=== PATIENT | male | born 1970 | race African-American/Black ===

== ENCOUNTER 2019-08-15 08:05 | Observation (INO) | payer OTHER ==
--- NOTE | 2019-08-15 08:34 | RAD ---
RADIOGRAPH CHEST 1 VIEW: DATE: 08/15/2019 HISTORY: 48-year-old female with chest pain FINDINGS: The thoracic aorta is tortuous and ectatic. There is no evidence of airspace density, cardiomegaly, p ulmonary edema, or pneumothorax. The lateral costophrenic angles are not effaced. IMPRESSION: 1) No acute pulmonary findings. 2) ectasia of thoracic aorta.
[2019-08-15 08:46] LABS: #Lymphocytes 1.1 thou/uL (1.20-3.40); #Monocytes 0.3 thou/uL (0.11-0.59); #Neutrophils 1.6 thou/uL (1.40-6.50); %Basophils 0.3 % (0.0-1.0); %Eosinophils 0.5 % (0.0-10.0); %Monocytes 10.1 % (0.0-10.0); %Neutrophils 53.1 % (42.0-75.0); Hemoglobin 13.7 g/dL (14.0-18.0); Mean Corpuscular HGB CONC 32.5 g/dL (32.0-36.0); Mean Corpuscular Volume 95.4 fL (78.0-98.0); Platelet Count 211 thou/uL (130-400); RBC Distribution Width 13.2 % (11.5-14.5); Red Blood Cell (RBC) Count 4.42 mill/uL (4.70-6.10); White Blood Cell (WBC) Count 2.9 thou/uL (4.8-10.8)
[2019-08-15 09:05] LABS: ALT (SGPT) 32 U/L (8-55); AST (SGOT) 21 U/L (5-34); Albumin 4.1 g/dL (3.5-5.0); Alkaline Phosphatase 88 U/L (40-110); Anion Gap 11 mmol/L (10-20); BUN (Urea Nitrogen) 13 mg/dL (8.9-20.6); Bilirubin, Total 0.5 mg/dL (0.2-1.2); Calc. Creatinine Clearance 0 mL/min (70-130); Calcium 9.3 mg/dL (7.8-10.44); Carbon Dioxide 26 mmol/L (22-29); Chloride 107 mmol/L (98-107); Estimated GFR-MDRD 78; Globulin 2.5 g/dL (2.4-3.5); Glucose 94 mg/dL (70-105); Potassium 4.1 mmol/L (3.5-5.1); Protein, Total 6.6 g/dL (6.0-8.3); Sodium 140 mmol/L (136-145)
[2019-08-15 11:21] LABS: Troponin I 0.026 ng/mL (< 0.028)
--- NOTE | 2019-08-15 12:49 | PDOC.FPRHP ---
- History of Present Illness Chief Complaint: Chest pain History of Present Illness: Mr. Greenberg is a 48yo AAM who [facility] of chest pain. For the past 3 days he has noticed a tightening of his anterior chest which has radiated from the left side over to the center of his chest and also radiates behind his ear and into the left shoulder/axilla. The pain usually lasts 1-3 hours, however this morning it lasted about 5 hours which prompted him to come to the ED. Movement and stretching makes the pain better. Nothing makes the pain worse. He normally does sit-up and push ups in the evenings. He denies history of heart problems. His chest pain was resolved with the Nitro paste. He has a history of anxiety. ED Course: NS 500ml, ASA, Nitro paste - Allergies/Adverse Reactions Allergies Allergy/AdvReac Type Severity Reaction Status Date / Time No Known Allergies Allergy Verified 08/15/19 14:43 - Home Medications Medication Instructions Recorded Confirmed Type Amlodipine [Norvasc] 5 mg PO DAILY 08/15/19 08/15/19 History Aspirin [Ecotrin] 81 mg PO DAILY 08/15/19 08/15/19 History Atorvastatin Calcium [Lipitor] 40 mg PO QPM 08/15/19 08/15/19 History - History PMHx: HTN HLD PSHx: None FHx: Mom: HTN, DM II, 08/18 GA @ 62 Social: 1p q 3 days x 8 years. History of social alcohol use. No history illicit drugs. - Review of Systems General: denies: fever/chills, weight/appetite/sleep changes, night sweats, fatigue Eyes: denies: eye pain, vision changes ENT: denies: nasal congestion, rhinorrhea Respiratory: denies: cough, congestion, shortness of breath, exercise intolerance Cardiovascular: reports: chest pain, edema. denies: palpitation, paroxysmal nocturnal dyspnea, orthopnea Gastrointestinal: denies: nausea, vomiting, diarrhea, constipation Genitourinary: denies: incontinence, dysuria, polyuria Skin: denies: rashes, lesions, jaundice Musculoskeletal: reports: pain, tenderness, stiffness. denies: swelling Neurological: reports: other (headache). denies: numbness, syncope, seizure Psychological: reports: anxiety. denies: depression - Vital signs BP: 136/90, Pulse: 69, Resp: 15, Pain: 0, O2 sat: 100 on (Room Air). Wt: 99kg - Physical Exam Constitutional: NAD, awake, alert and oriented, well developed HEENT: normocephalic and atraumatic, PERRLA, EOMI, conjunctiva clear, grossly normal vision, grossly normal hearing, MMM Neck: trachea midline, no JVD, no thyromegaly Chest: no-tender to palpation Heart: RRR, normal S1/S2, no murmurs/rubs/gallops, pulses present, no edema Lungs: CTAB, no respiratory distress, good air movement, no rales/rhonchi, no wheezing Abdomen: soft, non-tender, bowel sounds present Musculoskeletal: normal structure, normal tone Neurological: no focal deficit, CN II-XII intact Skin: no rash/lesions, good turgor Heme/Lymphatic: no unusual bruising or bleeding, no purpura Psychiatric: normal mood and affect, good judgment and insight, intact recent and remote memory FMR H&P: Results - Labs Result Diagrams: 08/15/19 08:33 08/15/19 08:33 Lab results: WBC 2.9 thou/uL (4.8-10.8) L 08/15/19 08:33 Hgb 13.7 g/dL (14.0-18.0) L 08/15/19 08:33 Hct 42.2 % (42.0-52.0) 08/15/19 08:33 MCV 95.4 fL (78.0-98.0) 08/15/19 08:33 Plt Count 211 thou/uL (130-400) 08/15/19 08:33 Neutrophils % 53.1 % (42.0-75.0) 08/15/19 08:33 Sodium 140 mmol/L (136-145) 08/15/19 08:33 Potassium 4.1 mmol/L (3.5-5.1) 08/15/19 08:33 Chloride 107 mmol/L (98-107) 08/15/19 08:33 Carbon Dioxide 26 mmol/L (22-29) 08/15/19 08:33 BUN 13 mg/dL (8.9-20.6) 08/15/19 08:33 Creatinine 1.19 mg/dL (0.7-1.3) 08/15/19 08:33 Glucose 94 mg/dL (70-105) 08/15/19 08:33 Calcium 9.3 mg/dL (7.8-10.44) 08/15/19 08:33 Total Bilirubin 0.5 mg/dL (0.2-1.2) 08/15/19 08:33 AST 21 U/L (5-34) 08/15/19 08:33 ALT 32 U/L (8-55) 08/15/19 08:33 Alkaline Phosphatase 88 U/L (40-110) 08/15/19 08:33 Serum Total Protein 6.6 g/dL (6.0-8.3) 08/15/19 08:33 Albumin 4.1 g/dL (3.5-5.0) 08/15/19 08:33 - EKG Interpretation EKG: NSR FMR H&P: A/P - Problem List (1) Chest pain Current Visit: Yes Status: Acute Code(s): R07.9 - CHEST PAIN, UNSPECIFIED (2) HTN (hypertension) Current Visit: Yes Status: Acute Code(s): I10 - ESSENTIAL (PRIMARY) HYPERTENSION (3) Hyperlipidemia Current Visit: Yes Status: Acute Code(s): E78.5 - HYPERLIPIDEMIA, UNSPECIFIED - Plan Chest pain, atypical - Heart score of 3 - Initial troponin very low, mildly increased on repeat, indeterminate level. - Typical vs Atypical - seems msk in nature, however it did have a classic radiation pattern and was relieved by nitro. - AM Labs: Fasting lipid panel, TSH, and A1c - Will perform cardiolite stress test in the AM - Trend troponins. HTN, HLD - will continue home medications Borderline neutropenia - WBC 2.9. ANC 1539 - Will order HIV, Hepatitis and Syphilis serologies. Disposition/LOS: Dispo: Stable, observation. Likely d/c tomorrow pending results of stress test. VTE: Lovenox Code: Full FMR H&P: Upper Level - Plan Date/Time: 08/15/19 1248 IMack MD, have evaluated this patient and agree with findings/plan as outlined by auditor internal resident. Pertinent changes/additions are listed here. Juan Greenberg is a 48 year old M with a PMH of HTN, HLD, currently incarcerated who presented to the ED with a several day history of chest pain. Pain is substernal, radiating to the neck and left arm, occurring at rest. Not exertional, no associated fever, diaphoresis, n/v, dyspnea. No history of CAD. Had a stress test over 10 years ago that was negative. States that he was having chest pain at that time but it was attributed to anxiety. Pain not reproducible with palpation. At the facility, patient was given Nitro X3 which improved with chest pain. In the ED, EKG showed NSR without ST changes. VSS in the ED were stable and wnl. Trop was 0.011 and 0.026, WBC count 2.9 with 53% bands, platelets 211, Cr 1.19. D-dimer 0.29, CXR showed no acute cardiopulmonary findings, ectasia of thoracic. In the ED, he was given Aspirin. Patient admitted to [facility] for typical chest pain r/o acs. Has components of typical and atypical chest pain. Hx of Smoking, HTN, HLD, Pain improved with nitro, trops and EKG negative. HEART score about 4. Stress in AM , NPO @ midnight. Continue home antihypertensive regimen. Patient has borderline neutropenia. Will check HIV. Anticipate hospital stay < 48 hours unless positive stress test. Continue nitro, aspirin and statin. Checking FLP and TSH. Please see auditor internal note above for full H&P, which I have reviewed and agree with. Addendum - Attending - Attending Attestation Date/Time: 08/16/19 0803 I personally evaluated the patient and discussed the management with Dr. Hooper yesterday afternoon. I agree with the History, Examination, Assessment and Plan documented above with any addition or exceptions noted below.
[2019-08-15] MEDS ORDERED: Aspirin Chewable 81 MG TAB ONE (13:13)
[2019-08-15] MEDS ORDERED: Nitroglycerin 2% Ointment 1 INCH/1 GM Packet ONE (13:13)
[2019-08-15] MEDS ORDERED: Calcium Carbonate 500 MG ChewTAB PO PRN (13:20)
[2019-08-15] MEDS ORDERED: Senokot S 8.6-50 MG TAB PO PRN (13:20)
[2019-08-15] MEDS ORDERED: Acetaminophen 325 MG TAB PO PRN (13:20)
[2019-08-15] MEDS ORDERED: Ondansetron ODT 4 MG TAB PO PRN (13:20)
[2019-08-15 14:51] VITALS: BMI 31.8
[2019-08-15] MEDS: Nitroglycerin 0.4 MG TAB (25 Tab Bottle) SL PRN ×2 (18:31→18:36)
[2019-08-15] MEDS ORDERED: Morphine 2 MG/ML SYRINGE SLOW IVP SCH (19:30)
[2019-08-15] MEDS ORDERED: Famotidine 20 MG TAB PO SCH (21:00)
[2019-08-15] MEDS ORDERED: Atorvastatin Calcium 40 MG TAB PO SCH (21:00)
[2019-08-16] MEDS ORDERED: Morphine 2 MG/ML SYRINGE SLOW IVP SCH (01:15)
--- NOTE | 2019-08-16 05:11 | PDOC.FM ---
- Subjective Subjective: Patient was being prepped for transfer for his Stress Test at the time of evaluation. He denied any acute overnight events, but expressed concern over the etiology of his chest pain. He was counseled that the etiology of his chest pain did not appear to be cardiac at this time due to previous lab values and test results, but that the Resident Day Team would continue to investigate all possible causes. - Objective Vital Signs & Weight: Vital Signs (12 hours) Temp Pulse Resp BP Pulse Ox 08/16/19 00:54 98.6 F 75 16 132/78 97 08/15/19 19:12 98.2 F 77 16 136/82 97 Weight Weight 97.976 kg I&O: 08/14/19 08/15/19 08/16/19 06:59 06:59 06:59 Intake Total 720 Balance 720 Result Diagrams: 08/15/19 08:33 08/15/19 08:33 Phys Exam - Physical Examination Constitutional: NAD HEENT: moist MMs, sclera anicteric, oral pharynx no lesions Neck: supple, full ROM Respiratory: no wheezing, no rales, no rhonchi, clear to auscultation bilateral Cardiovascular: RRR, no significant murmur, no rub Gastrointestinal: soft, non-tender, no distention, positive bowel sounds Musculoskeletal: no edema, pulses present Neurological: non-focal, moves all 4 limbs Psychiatric: normal affect, A&O x 3 Skin: no rash Dx/Plan - Plan Plan: Patient is a 48 y/o male who [facility] from [facility] with 3 days of chest pain. 1. Chest pain, Atypical -Seems MSK in nature based on HPI, however pain does have classic radiation pattern, relieved by Nitro -EKG: Pulmonary Disease Pattern -Trops: Negative X3 -D-Dimer: 0.29 -CXR: NAF -Heart Score: 3 -Fasting Lipid Panel: Pending -TSH: Pending -HgA1c: 5.2 -Cardiolite Stress Test: Pending 2. HTN -Several elevated pressure on admission -BP: 136/83 on 08/16 -Currently holding home Amlodipine prior to Stress Test 3, HLD -See #1 -Will continue home Atorvastatin regimen 4. Neutropenia -WBC: 2.9 / ANC: 1539 -HIV: Pending -Hepatitis: Pending -RPR: Pending -Will continue to investigate 5. Anxiety -No medications listed within records from [facility] -Possible contributing factor - will continue to monitor 6. Tobacco Abuse -1/3 PPD for 8 years -Will stress importance of tobacco abuse cessation prior to DC PCP: [facility] - [facility] Code: Full Diet: HH w/ Low Sodium VTE PPx: SCDs w/ Lovenox Dispo: Patient is currently admitted to the Telemetry Floor for observation of Atypical Chest Pain. Plan for additional labs and imaging modalities as per above and consider Cardiology consult if necessary. Expected LOS < 24H. Addendum - Attending - Attending Attestation Date/Time: 08/16/19 5243 I personally evaluated the patient and discussed the management with Dr. Pham. I agree with the History, Examination, Assessment and Plan documented above with any addition or exceptions noted below. The patient's chest pain is resolved. Getting stress test today. If normal, will likely d/c.
[2019-08-16 05:22] LABS: Hemoglobin A1c 5.2 % (4.0-6.0)
[2019-08-16 05:41] LABS: Cardiac Risk 2.7 (Less than 4.5)
[2019-08-16 05:58] LABS: Syphilis Antibody Nonreactive (Nonreactive); Syphilis Antibody Index 0.03 S/CO (<1.00 Non-Reactive)
[2019-08-16 06:00] LABS: HBCM Index 0.05 S/CO (0-0.79); Hep B Surf AB Non-Reactive (NonReactive); Hep C IgG Ab Non-Reactive (NonReactive); Hep C Index 0.07 S/CO (0-0.79); Hepatitis B Core IgM Abs Non-Reactive (NonReactive); Thyroid Stimulating Hormone 0.8612 uIU/mL (0.35-4.94)
[2019-08-16] MEDS ORDERED: Aspirin 325 mg Enteric Coated Tablet PO SCH (09:00)
[2019-08-16] MEDS ORDERED: Enoxaparin Sodium 40 MG/0.4 ML SYRINGE SC SCH (09:00)
[2019-08-16] MEDS ORDERED: Aspirin 81 mg Enteric Coated Tablet PO SCH (09:00)
[2019-08-16 10:18] LABS: HIV (1/2) Antibody/Antigen Non-Reactive (NonReactive); HIV 1/2 INDEX 0.09 S/CO (<1.00)
--- NOTE | 2019-08-16 11:27 | NM ---
EXAM: NM Cardiac Stress W EF WF PROVIDED CLINICAL HISTORY: Chest pain. History of hypertension and dyslipidemia. COMPARISON: None FINDINGS: There is no significant reversible defect seen between the stress and resting acquisitions. Quantitat sera analysis also shows no significant reversible defect. Gated images demonstrate normal ventricular wall thickening, but there is mild hypokinesis involving the inferior left ventricular wa ll. The calculated left ventricular ejection fraction is 53%. IMPRESSION: 1. Normal myocardial perfusion study without evidence of a reversible defect seen to suggest ischemia . 2. Mild hypokinesis involving the inferior left ventricular wall. 3. Left ventricular ejection fraction of 53%.
[2019-08-16] MEDS ORDERED: ADENOSINE 60 MG/20 ML VIAL ONE (13:11)
[2019-08-16 16:49] VITALS: BP 148/86; TEMP 98.4
--- NOTE | 2019-08-17 02:26 | DIS ---
DATE OF ADMISSION: 08/15/2019 DATE OF DISCHARGE: 08/16/2019 RESIDENT: Ramiro Pham MD ADMITTING ATTENDING: Wicho Lucia MD DISCHARGE ATTENDING: Jean Marino MD CONSULTS: None. PROCEDURES: Stress test nuclear medicine demonstrating normal myocardial perfusion study without evidence of a reversible defect seen to suggest ischemia. Mild hypokinesia involving the inferior left ventricular wall. Left ventricular ejection fraction of approximately 53%. PRIMARY DIAGNOSIS: Musculoskeletal chest pain. SECONDARY DIAGNOSES: 1. Tobacco abuse. 2. Anxiety. 3. Neutropenia. 4. Hyperlipidemia. 5. Hypertension. DISCHARGE MEDICATION: Acetaminophen 650 mg p.o. q.4 hours p.r.n. DISCONTINUED MEDICATIONS: 1. Aspirin 81 mg p.o. daily. 2. Atorvastatin 40 mg p.o. daily. 3. Lovenox 40 mg subcutaneous daily. 4. Nitroglycerin 0.4 mg sublingual q.5 minutes p.r.n. 5. Morphine 2 mg. HISTORY OF PRESENT ILLNESS AND HOSPITAL COURSE: Mr. Greenberg is a 48-year-old male who presents from [facility]-way for 3 days of atypical chest pain. For the past 3 days, he has noticed a tightening of his anterior chest, which has radiated to the left side, to the center of his chest and also radiates behind his ear into the left shoulder and axilla. The patient states the pain usually lasts 1-3 hours. However, this morning it lasted for 5 hours, which prompted him to come to the ED, movement and stretching makes the pain better. Nothing makes the pain worse. He normally does sit-ups and pushups in the evening. He denies history of heart problems. Chest pain was resolved with nitroglycerin paste. He also admitted to a history of anxiety. In the ED, the patient received a chest x-ray which was normal and EKG, which was mildly suggestive of pulmonary dysfunction and troponins were negative x3. He subsequently underwent nuclear medicine stress test, which was read as within normal limits, results of which are noted elsewhere in this document. Following clearance from Cardiology, he was subsequently prepped for discharge. Prior to discharge his vital signs revealed a temperature of 98.7, pulse 89, respirations 14 per minute, O2 sats 98% on room air, blood pressure 136/82. LABORATORY ANALYSIS: Revealed a white blood cell count of 2.9, hemoglobin 13.7, hematocrit 42.2, platelet count 211. Coagulation panel revealed a D-dimer value of 0.29. Chem panel revealed a sodium of 140, potassium 4.1, chloride 107, carbon dioxide 26, BUN 13, creatinine 1.19, glucose 94. Hemoglobin A1c was 5.2, calcium 9.3, total bilirubin 0.5, AST 21, ALT 32, alkaline phosphatase 88, triglycerides 33, cholesterol 110, LDL 62, HDL 41, TSH 0.86. Syphilis IgG IgM antibody nonreactive. Hepatitis B surface antibody nonreactive. Hepatitis B antibody index 0. Hepatitis B core IgM antibody nonreactive. Hepatitis C antibody nonreactive. HIV 1 and 2 antigen and antibody nonreactive. DISPOSITION: Stable. DISCHARGE INSTRUCTIONS: 1. Location: Group Home. 2. Diet: Heart healthy. 3. Activity: No restrictions. 4. Followup: The patient was advised to follow up with his primary care provider in 1 to 2 weeks in order to discuss the most recent hospitalization as well as the need to initiate tobacco cessation efforts. Job ID: [id number]
== END 2019-08-16 18:07 ==
LOC: ERS 08:05 → 2SW 12:48
PROVIDERS: ADMIT Family Medicine; ATTEND Family Medicine
DX: R07.89 Other chest pain (principal); I10 Essential (primary) hypertension; E78.5 Hyperlipidemia, unspecified; F41.9 Anxiety disorder, unspecified; D70.9 Neutropenia, unspecified; F17.210 Nicotine dependence, cigarettes, uncomplicated; Z79.82 Long term (current) use of aspirin; Z79.899 Other long term (current) drug therapy
CPT/HCPCS: 36415; 71045; 78452; 80053; 80061; 83036; 84443; 84484; 85025; 85379; 86705; 86706; 86780; 86803; 87389; 93017; 96360; 96361; 96372; 96374; 96376; A9500; G0378; J0153; J1650; J2270